=== PATIENT | male | born 1940 | race Caucasian/White ===

== ENCOUNTER → 2016-09-21 | Outpatient (CLI) | payer OTHER, MEDICARE ==
[~2016-09-21] MED LIST: KEFLEX500 MG PO; LEVEMIR100 U/ML SC; LISINOPRIL5 MG PO; LOPRESSOR50 MG PO; NEURONTIN300 MG PO; NORVASC10 MG PO; PLAVIX75 MG PO; ZEITA
[2016-09-21 10:30] LABS: HEMATOCRIT 45.3 % (42.0-52.0); HEMOGLOBIN 14.9 g/dl (14.0-18.0); MEAN CELL VOLUME 87.1 fl (80.0-94.0); MEAN CORPUSCULAR HGB 28.7 pg (27.0-31.0); MEAN CORPUSCULAR HGB CONC 32.9 g/dl (33.0-37.0); MEAN PLATELET VOLUME 12.7 fl (9.6-12.3); PLATELET COUNT AUTOMATED 141 10*3/uL (130-400); RED CELL DISTRI WIDTH 14.3 % (0-14.5)
[2016-09-21 10:48] LABS: ATYPICAL LYMPHS 3 % (0-0); EOSINOPHIL # 0.4 10*3/uL (0-0.4); EOSINOPHILS 1 % (1-4); LYMPHOCYTE # 32.1 10*3/uL (1.3-4.4); MONOCYTE # 0.8 10*3/uL (0.1-1.0); NEUTROPHIL # 5.9 10*3/uL (2.3-7.9); NEUTROPHILS 15 % (47-73); TOTAL CELLS COUNTED 100 #CELLS
[2016-09-21 10:50] LABS: PLATELET SUFFICIENCY NORMAL (NORMAL)
[2016-09-21 10:51] LABS: ALBUMIN 4.1 gm/dl (3.1-4.5); ALKALINE PHOSPHATASE 123 U/L (45-117); BILIRUBIN, TOTAL 0.6 mg/dl (0.2-1.0); BUN 13 mg/dl (7-24); CARBON DIOXIDE 29 mmol/L (21-32); CHLORIDE 104 mmol/L (98-107); EST GLOM FILT AFRICAN AMERICAN > 60 ml/min; GLUCOSE 130 mg/dL (65-99); LDH 191 U/L (87-241); POTASSIUM 4.5 mmol/L (3.5-5.1); SGOT/AST 9 IU/L (3-35); SGPT/ALT 15 U/L (12-78); SODIUM 141 mmol/L (136-145); TOTAL PROTEIN 6.9 gm/dL (6.4-8.2)
[2016-09-21 11:23] LABS: WHITE BLOOD COUNT 39.1 10*3/uL (4.8-10.8)
== END | disposition home or self-care (01) ==
LOC: LAB 09:45
PROVIDERS: Internal Medicine Hematology & Oncology
DX: C91.10 Chronic lymphocytic leukemia of B-cell type not having achieved remission (principal)

== ENCOUNTER → 2017-04-09 | Outpatient (CLI) | payer MEDICARE ==
[2017-04-09 15:20] LABS: HEMATOCRIT 41.8 % (42.0-52.0); HEMOGLOBIN 13.5 g/dl (14.0-18.0); MEAN CELL VOLUME 86.2 fl (80.0-94.0); MEAN CORPUSCULAR HGB 27.8 pg (27.0-31.0); MEAN CORPUSCULAR HGB CONC 32.3 g/dl (33.0-37.0); MEAN PLATELET VOLUME 12.9 fl (9.6-12.3); PLATELET COUNT AUTOMATED 130 10*3/uL (130-400); RED BLOOD COUNT 4.85 10*6/uL (4.50-5.90); RED CELL DISTRI WIDTH 15.2 % (0-14.5); WHITE BLOOD COUNT 29.4 10*3/uL (4.8-10.8)
[2017-04-09 16:16] LABS: BASOPHILS 1 % (0-1); PLATELET SUFFICIENCY NORMAL (NORMAL); TOTAL CELLS COUNTED 100 #CELLS
== END | disposition home or self-care (01) ==
LOC: LAB 14:54
PROVIDERS: Internal Medicine Hematology & Oncology
DX: C91.10 Chronic lymphocytic leukemia of B-cell type not having achieved remission (principal)

== ENCOUNTER 2017-06-24 20:06 | Inpatient (IN) | payer MEDICARE ==
[~2017-06-24] VITALS: Ht 195.5 cm; Wt 86.8 kg
--- NOTE | ~2017-06-24 | CON ---
[place], [place] REPORT OF CONSULTATION NAME: BRENTON RIZVI Joanna UNIT #: [id number] ROOM: 520 DOCTOR: SUSAN HOWARD MD BIRTHDATE: [birth year] DOS: 06/26/2017 HISTORY OF PRESENT ILLNESS: A 77-year-old gentleman who has presented with chief complaint of not feeling well. Initially, the patient is known with chronic lymphocytic leukemia. The patient has been seen by Dr. Mckinley of Oncology already. During the investigation, we found that the patient has lung nodules, multiple liver nodules, lymphadenopathy, and today has been sent for lung biopsy. PAST MEDICAL HISTORY: Associated with hypertension, diabetes mellitus, CLL, COPD, atherosclerosis, vasculature, and hypertension. PAST SURGICAL HISTORY: He has had tonsillectomy, endarterectomy, antral vascular stents as well as he has had a colonoscopy about 2 years ago. SOCIAL HISTORY: Past smoker. History of alcohol ____. MEDICATIONS: Medication list has been reviewed. REVIEW OF SYSTEMS: HEENT: Denies double vision or blurred vision. RESPIRATORY: Admits some shortness of breath. CARDIOVASCULAR: Denies chest pain. DIGESTIVE SYSTEM: No hematemesis. No hematochezia. Bowel movements are in order. PHYSICAL EXAMINATION: GENERAL: Frail patient with some degree of aphasia; otherwise, still alert, not encephalopathic. HEENT: Benign otherwise. NECK: Supple. LUNGS: Decreased air entry. Anteriorly auscultated. HEART: Normal sinus rhythm. No gallop. No murmur. ABDOMEN: Tender in right upper quadrant on the liver capsule. Bowel sounds present. EXTREMITIES: Dry. IMPRESSION AND PLAN: Ruling out metastatic disease of advanced degree multiorgan, biopsies has been pending. The latest studies including CT scan of the head, acute intracranial infarct in the left parietal lobe was noticed. Small vessel disease seen. Blood cultures negative. Lung biopsy is pending. Pathology report, latest H and H 13 and 39 with a white blood cell of 23 and thrombocytopenia. His kidneys are doing well with GFR greater than 60. Magnesium benign. Liver function test abnormal as expected. Hemoglobin A1c 7. Workup in progress. [place], [place] REPORT OF CONSULTATION NAME: BRENTON RIZVI UNIT #: [id number] ROOM: 520 DOCTOR: SUSAN HOWARD MD BIRTHDATE: [birth year] SUSAN HOWARD MD CM:CONSTR:REPORT OF CONSULTATION 1919 06/27/17 0322 interface
--- NOTE | ~2017-06-24 | PR ---
[place], [place] PROGRESS NOTE NAME: BRENTON RIZVI [facility] #: [id number] UNIT #: [id number] ROOM: 520 DOCTOR: GARETT GONZALES MD BIRTHDATE: [birth year] DOS: 06/29/2017 SUBJECTIVE: The patient is doing better. He is alert and oriented. REVIEW OF SYSTEMS HEENT: No trouble swallowing. No double vision. No loss of vision. No pain. ENT AND RESPIRATORY: No wheeze. No change in voice. No cough. No shortness of breath. No coughing up blood. No epistaxis. CARDIOLOGIC: No chest pain. No dizziness. No irregular heartbeat. No leg edema. No palpitations. No shortness of breath. HEMATOLOGIC AND LYMPH: No past transfusion. No fatigue. No loss of appetite. No easy bruising. GASTROENTEROLOGIC: No change in bowel habits. No vomiting blood. No abdominal cramping. No nausea. No vomiting. No diarrhea. No constipation. No blood in stool. MALE REPRODUCTIVE: No testicular pain. No penile discharge. MUSCULOSKELETAL: No back pain. No muscle pain or weakness. No tingling/numbness. UROLOGIC: No pain with urination. No difficulty urinating. No frequent urination. NEUROLOGIC: No burning pain in feet. No trouble with coordination. No loss of consciousness. No headache. No tingling/numbness. No memory loss. PHYSICAL EXAMINATION GENERAL: Pleasant gentleman in no apparent distress. VITAL SIGNS: Stable and afebrile. HEENT: Normocephalic, atraumatic NECK AND THYROID: Supple. No JVD, thyromegaly, or lymphadenopathy. HEART: Normal S1, S2. Regular rate and rhythm. LUNGS: Clear to auscultation and percussion. ABDOMEN: Soft. Nontender, nondistended. Bowel sounds present. EXTREMITIES: Normal ROM. No clubbing. No edema. LABORATORY DATA: White count of 20.3, hemoglobin 12.7, hematocrit 39.0, platelet count 136,000. EGFR is more than 60, sodium 137, potassium 4.1, chloride 101, SGOT 133, SGPT 60, and alkaline phosphatase 378. Pathology of the right lower lung biopsy consistent with non-small cell carcinoma favoring adenocarcinoma. Other tumor markers are pending. CT of the head showed stable appearance infarct in the left parietal lobe, no interval change. CT of the chest showed large mass lesion, right lower lobe, a tiny post-procedure pneumothorax and trace pleural fluid was identified. CT of the abdomen and pelvis showed multiple diffuse hepatic metastases and sclerotic bony metastases and multiple large retroperitoneal and bilateral pelvic node masses. [place], [place] PROGRESS NOTE NAME: BRENTON RIZVI [facility] #: [id number] UNIT #: [id number] ROOM: 520 DOCTOR: GARETT GONZALES MD BIRTHDATE: [birth year] ASSESSMENT: 1. Non-small cell lung cancer with metastatic disease to the liver, multiple, sclerotic bony metastases, and multiple large retroperitoneal and bilateral pelvic aliyah masses. 2. Leukocytosis secondary to chronic lymphocytic leukemia. 3. Thrombocytopenia, which is better. 4. History of cerebrovascular accident, history of infarct. 5. Chronic obstructive pulmonary disease exacerbation. PLAN: I have discussed with the patient about his metastatic cancer. We will wait for the tumor markers to come back. In the meantime, we will also schedule him for a PET scan, once the tumor markers are back, then further intervention. The patient is already on Lovenox. I had a detailed discussion with the patient about it, and he seemed to understand it. Ample time was given to the patient to ask me questions. We will follow up. GARETT GONZALES MD CM:PNTRANS [id number] 11 GARETT GONZALES MD 06/29/172211 interface
--- NOTE | ~2017-06-24 | PR ---
[place], [place] PROGRESS NOTE NAME: BRENTON RIZVI [facility] #: [id number] UNIT #: [id number] ROOM: 520 DOCTOR: CONCHA FALK MD BIRTHDATE: [birth year] DOS: 06/26/2017 CARDIOLOGY PROGRESS NOTE SUBJECTIVE: The patient was seen at his bedside today with family in attendance. He just got back from a radiologically guided biopsy of a lung mass. He tolerated the procedure well and is breathing easily. He has minimal chest pain. PHYSICAL EXAMINATION: VITAL SIGNS: Today his pulse is 74 and regular, blood pressure is 120/50. He is afebrile. NECK: Supple. He has no jugular distention. Carotids are full. LUNGS: Respirations are unlabored. Chest is clear anteriorly and laterally. EXTREMITIES: Showed no edema. IMPRESSION: 1. Abdominal pain. 2. Probable cancer, source unknown, with multiple metastases to lung, liver, retroperitoneum, etc. 3. Mild elevation in troponin. 4. History of vascular disease. PLAN: For now, we will review his echocardiogram when it is available, but I do not have any other plans for cardiac workup until his cancer diagnosis is better established. He does not appear to be having an acute coronary syndrome at this time. I thank the hospitalist group for asking our advice regarding his care. CONCHA FALK MD CM:PNTRANS [phone] CONCHA FALK MD 06/26/17 1547 interface
--- NOTE | ~2017-06-24 | PR ---
[place], [place] PROGRESS NOTE NAME: BRENTON RIZVI [facility] #: [id number] UNIT #: [id number] ROOM: 520 DOCTOR: GARETT GONZALES MD BIRTHDATE: [birth year] DOS: 06/26/2017 SUBJECTIVE: The patient is doing better. He is alert, oriented. His is sitting at the bedside. REVIEW OF SYSTEMS HEENT: No trouble swallowing. No double vision. No loss of vision. No pain. ENT AND RESPIRATORY: No wheeze. No change in voice. No cough. No shortness of breath. No coughing up blood. No epistaxis. CARDIOLOGIC: No chest pain. No dizziness. No irregular heartbeat. No leg edema. No palpitations. No shortness of breath. HEMATOLOGIC AND LYMPH: No past transfusion. No fatigue. No loss of appetite. No easy bruising. GASTROENEROLOGIC: No change in bowel habits. No vomiting blood. No abdominal cramping. No nausea. No vomiting. No diarrhea. No constipation. No blood in stool. MALE REPRODUCTIVE: No testicular pain. No penile discharge. MUSCULOSKELETAL: No back pain. No muscle pain or weakness. No tingling/numbness. UROLOGIC: No pain with urination. No difficulty urinating. No frequent urination. NEUROLOGIC: No burning pain in feet. No trouble with coordination. No loss of consciousness. No headache. No tingling/numbness. No memory loss. PHYSICAL EXAMINATION: GENERAL: Pleasant gentleman in no apparent disorders. VITAL SIGNS: Stable and afebrile. HEENT: Normocephalic, atraumatic NECK AND THYROID: Supple. No JVD, thyromegaly, or lymphadenopathy. HEART: Normal S1, S2. Regular rate and rhythm. LUNGS: Clear to auscultation and percussion. ABDOMEN: Soft. Nontender, nondistended. Bowel sounds present. EXTREMITIES: Normal ROM. No clubbing. No edema. LABORATORY DATA: White count 23.8, hemoglobin 13.0, hematocrit 39.6, platelet count 214,000. Calcium 8.8. EGFR more than 60, sodium 138, potassium 4.0, chloride 100, bicarbonate 27, magnesium of 2.5. ASSESSMENT: 1. A 7.5 cm mass-like opacity in the right lower lung lower lobe. 2. Metastatic disease to the liver, lymph nodes and the bones. 3. Chronic lymphocytic leukemia. 4. Leukocytosis secondary to #3. PLAN: He had a CT-guided biopsy of the lung done today, we will wait for reports to come back. Depending on further intervention, I had discussed the case with the patient as well with the and they seem to understand it. [place], [place] PROGRESS NOTE NAME: BRENTON RIZVI UNIT #: [id number] ROOM: [facility] DOCTOR: GARETT GONZALES MD BIRTHDATE: [birth year] GARETT GONZALES MD CM:LAVERNE 1351 40 GARETT GONZALES MD 06/26/17 2340 interface
--- NOTE | ~2017-06-24 | PR ---
[place], [place] PROGRESS NOTE NAME: BRENTON RIZVI [facility] #: [id number] UNIT #: [id number] ROOM: 520 DOCTOR: GARETT GONZALES MD BIRTHDATE: [birth year] DOS: 06/28/2017 SUBJECTIVE: The patient is doing better. He is alert and oriented. REVIEW OF SYSTEMS: HEENT: No trouble swallowing. No double vision. No loss of vision. No pain. ENT AND RESPIRATORY: No wheeze. No change in voice. No cough. No shortness of breath. No coughing up blood. No epistaxis. CARDIOLOGIC: No chest pain. No dizziness. No irregular heartbeat. No leg edema. No palpitations. No shortness of breath. HEMATOLOGIC AND LYMPH: No past transfusion. No fatigue. No loss of appetite. No easy bruising. GASTROENTEROLOGIC: No change in bowel habits. No vomiting blood. No abdominal cramping. No nausea. No vomiting. No diarrhea. No constipation. No blood in stool. MALE REPRODUCTIVE: No testicular pain. No penile discharge. MUSCULOSKELETAL: No back pain. No muscle pain or weakness. No tingling/numbness. UROLOGIC: No pain with urination. No difficulty urinating. No frequent urination. NEUROLOGIC: No burning pain in feet. No trouble with coordination. No loss of consciousness. No headache. No tingling/numbness. No memory loss. PHYSICAL EXAMINATION: GENERAL: Pleasant gentleman in no apparent distress. VITAL SIGNS: Blood pressure 140/54, respiratory rate 20, pulse 87, and temperature 97.6. HEENT: Normocephalic, atraumatic NECK AND THYROID: Supple. No JVD, thyromegaly, or lymphadenopathy. HEART: Normal S1, S2. Regular rate and rhythm. LUNGS: Clear to auscultation and percussion. ABDOMEN: Soft. Nontender, nondistended. Bowel sounds present. EXTREMITIES: Normal ROM. No clubbing. No edema. LABORATORY DATA: White count of 19.7, hemoglobin 13.2, hematocrit 41.4, and platelet count of 126. ASSESSMENT: 1. Leukocytosis secondary to chronic lymphocytic leukemia. 2. Thrombocytopenia. 3. Metastatic lung cancer. PLAN: The patient will be getting a PET scan as outpatient. I have discussed the findings with the family. We will keep a close watch on him at this time. Discussed. [place], [place] PROGRESS NOTE NAME: BRENTON RIZVI UNIT #: [id number] ROOM: 520 DOCTOR: GARETT GONZALES MD BIRTHDATE: [birth year] GARETT GONZALES MD CM:PNTRANS 56 GARETT GONZALES MD 06/29/171956 interface
--- NOTE | ~2017-06-24 | CON ---
[place], [place] REPORT OF CONSULTATION NAME: BRENTON RIZVI [facility] #: [id number] UNIT #: [id number] ROOM: 520 DOCTOR: GARETT GONZALES MD BIRTHDATE: [birth year] DOS: 06/25/2017 HISTORY OF PRESENT ILLNESS: The patient is a pleasant 77-year-old [place] gentleman who presented to [facility] because of abdominal pain. The pain is worse mostly in the lower areas and comes and goes. He has CT performed at Emergency Department, it showed a mass in his lungs as well as mass in the pelvis and additional metastatic lesion in the liver and bones. Subsequently, he was considered for further evaluation and management. PAST MEDICAL HISTORY: History of chronic lymphocytic leukemia, atherosclerosis, colon polyps, COPD, diverticulosis, type 2 diabetes, hyperlipidemia, hypertension, and hemorrhoids. PAST SURGICAL HISTORY: Carotid endarterectomy, history of intravascular stent placement, history of colonoscopy, and tonsillectomy. SOCIAL HISTORY: No smoking since 1 year. No alcohol abuse or drug abuse. FAMILY HISTORY: Mother had emphysema. Father had coronary artery disease. ALLERGIES: No known allergies. MEDICATIONS: Amlodipine, Lipitor, Plavix, Zetia, Neurontin, Levemir, and Lopressor. REVIEW OF SYSTEMS: CONSTITUTIONAL: No chills. No fatigue. No fever. No loss of appetite. No night sweats. No weakness. No weight loss. HEENT: No trouble swallowing. No loss of smell. No loss of hearing. No double vision. No pain. No discharge. ENT AND RESPIRATORY: No wheeze. No sore throat. No change in voice. No hearing loss. No nose bleed. No cough. No trouble breathing through nose. No shortness of breath. No coughing up blood. No epistaxis. CARDIOVASCULAR: No chest pain. No dizziness. No irregular heartbeat. No leg edema. No pain in legs while walking. No palpitations. No shortness of breath. DERMATOLOGIC: No acne. No hives. No laceration. No mole. No rash. ENDOCRINE: No cold intolerance. No diabetes. No fatigue. No hot flashes. No polydipsia. No polyuria. No urinating frequently. No weight loss. HEMATOLOGIC AND LYMPH: No fatigue. No easy bruising. GASTROENTEROLOGIC: No change in bowel habits. No indigestion. No frequent bloating. No vomiting blood. No abdominal cramping. No nausea. No heartburn. No vomiting. No abdominal pain. No dysphagia. No diarrhea. No constipation. No blood in stool. MALE REPRODUCTIVE: No testicular pain. No difficulty with erection. No diminished sexual drive. No penile discharge. MUSCULOSKELETAL: No back pain. No muscle pain or weakness. No neck pain. No tingling/numbness. No swelling/bruising. No osteoporosis treatment. OPTHALMOLOGIC: No double vision. No diminished vision. No loss of vision. UROLOGIC: No dysuria. No frequent nighttime urination. No pain with [place], [place] REPORT OF CONSULTATION NAME: BRENTON RIZVI UNIT #: [id number] ROOM: [facility] DOCTOR: GARETT GONZALES MD BIRTHDATE: [birth year] urination. No difficulty urinating. No blood in urine. No frequent urination. No urinary incontinence. NEUROLOGIC: No loss of sensation in specific body area. No vertigo. No burning pain in feet. No trouble with balance. No trouble with coordination. No loss of consciousness. No loss of feeling/power. No confusion. No headache. No tingling/numbness. PSYCHOLOGIC: No tinnitus. No headaches. No shortness of breath. No weight decrease. No nausea. No vomiting. No abdominal discomfort. No constipation. No diarrhea. No depression. No anxiety. PHYSICAL EXAMINATION: GENERAL: Pleasant gentleman, in no apparent distress. Complaining of pain in the abdomen. VITAL SIGNS: Stable. Afebrile. HEENT: Oral mucosa appears intact. The external ears are normal in appearance. Nares are patent without lesions, exudates, erythema, or inflammation. Tongue is symmetrical. Uvula is midline. NECK AND THYROID: Neck supple without palpable masses. Trachea is midline. No thyromegaly. No carotid bruit or JVD. BREASTS: Normal. Nipples unremarkable. No drainage. No lumps felt on either side. HEART: Normal S1, S2, without significant murmur, rub, or gallop. LUNGS: Clear to auscultation and percussion with good air entry bilaterally. The patient is breathing easily without the use of accessory muscles. Diaphragmatic excursions are intact. ABDOMEN: Soft, tender in the right quadrants, but no rebound or guarding. LYMPHATIC: No adenopathy noted in the cervical, supraclavicular, axillary, or inguinal regions. NEUROLGIC: Nonfocal. Oriented to person, place, and time. MENTAL STATUS: Appropriate for mood and affect. PERIPHERAL PULSES: No varicosities. Femoral and pedal pulses are palpable. EXTREMITIES: Without cyanosis, clubbing, or edema. No gross anomalies. LABORATORY DATA: Sodium 136, potassium 5.1, chloride 100, bicarbonate 28, EGFR is more than 60, calcium is 9.1. White count of 33.3, hemoglobin of 14.8, hematocrit 45.2, MCV 85.1, and platelet count of 131,000. ASSESSMENT: 1. Right lung mass with metastasis to the liver and the bones. 2. History of chronic lymphocytic leukemia. 3. Abdominal pain. 4. Anemia of neoplastic disorder. PLAN: The patient is scheduled for a biopsy. We will ____ of the lung. We will wait for the biopsy to come back. Depending on the further intervention, I had a detailed discussion with the patient as well as his . I also called her on the phone. Ample time was given to the patient to ask me questions. We will follow as her leukocytosis concern is probably reactive. Thanks for consulting and letting me participate in the care of this interesting [place], [place] REPORT OF CONSULTATION NAME: DMITRIBRENTON Joanna UNIT #: [id number] ROOM: [facility] DOCTOR: GARETT GONZALES MD BIRTHDATE: [birth year] patient. GARETT GONZALES MD CM:CONSTR:REPORT OF CONSULTATION 1347 06/27/17 0228 interface
--- NOTE | ~2017-06-24 | PR ---
[place], [place] PROGRESS NOTE NAME: BRENTON RIZVI UNIT #: [id number] ROOM: 520 DOCTOR: GARETT GONZALES MD BIRTHDATE: [birth year] DOS: 06/25/2017 The patient with a history of right lung mass and mets to the liver as well as history of CLL. CAT scan showing lymphadenopathy. I will review all the records. He will need a CT-guided biopsy of the lung. We will wait for the record from [facility]. Depending upon that, further intervention will be done. Full consult to follow. GARETT GONZALES MD CM:LAVERNE [phone] 32 GARETT GONZALES MD 06/25/173 interface
--- NOTE | ~2017-06-24 | PR ---
[place], [place] PROGRESS NOTE NAME: BRENTON RIZVI [facility] #: [id number] UNIT #: [id number] ROOM: 520 DOCTOR: GARETT GONZALES MD BIRTHDATE: [birth year] DOS: 06/27/2017 SUBJECTIVE: The patient is doing better. He is alert and oriented. He had a lung biopsy done, results are pending. REVIEW OF SYSTEMS HEENT: No trouble swallowing. No double vision. No loss of vision. No pain. ENT AND RESPIRATORY: No wheeze. No change in voice. No cough. No shortness of breath. No coughing up blood. No epistaxis. CARDIOLOGIC: No chest pain. No dizziness. No irregular heartbeat. No leg edema. No palpitations. No shortness of breath. HEMATOLOGIC AND LYMPH: No past transfusion. No fatigue. No loss of appetite. No easy bruising. GASTROENTEROLOGIC: No change in bowel habits. No vomiting blood. No abdominal cramping. No nausea. No vomiting. No diarrhea. No constipation. No blood in stool. MALE REPRODUCTIVE: No testicular pain. No penile discharge. MUSCULOSKELETAL: No back pain. No muscle pain or weakness. No tingling/numbness. UROLOGIC: No pain with urination. No difficulty urinating. No frequent urination. NEUROLOGIC: No burning pain in feet. No trouble with coordination. No loss of consciousness. No headache. No tingling/numbness. No memory loss. PHYSICAL EXAMINATION: GENERAL: Pleasant gentleman, in no apparent distress. VITAL SIGNS: Stable. He is afebrile HEENT: Normocephalic, atraumatic NECK AND THYROID: Supple. No JVD, thyromegaly, or lymphadenopathy. HEART: Normal S1, S2. Regular rate and rhythm. LUNGS: Clear to auscultation and percussion. ABDOMEN: Soft. Nontender, nondistended. Bowel sounds present. EXTREMITIES: Normal ROM. No clubbing. No edema. LABORATORY DATA: White count of 20.0, hemoglobin 12.3, hematocrit 37.4, and platelet count 108,000. Peripheral smear showed lymphocytes of 55. ASSESSMENT: 1. Lung mass with mets to the liver. 2. Leukocytosis secondary to chronic lymphocytic leukemia. 3. Possible chronic lymphocytic leukemia. 4. Thrombocytopenia. PLAN: I have discussed with the family. We will wait for the biopsy reports to come back. In the meantime, get records from [facility]. Depending on the biopsy reports further intervention. I have also discussed the finding with Dr. Armenta. Ample time was given to the patient to ask me questions. We will continue antibiotics for now. [place], [place] PROGRESS NOTE NAME: BRENTON RIZVI UNIT #: [id number] ROOM: [facility] DOCTOR: GARETT GONZALES MD BIRTHDATE: [birth year] GARETT GONZALES MD CM:PNTRANS [id number] 1518 GARETT GONZALES MD 06/27/17 1518 interface
[~2017-06-24 20:06] MED LIST changes: -ZEITA; +ZEITA PO
[2017-06-24 20:20] VITALS: BP 130/45
[2017-06-24 21:13] LABS: HEMATOCRIT 45.2 % (42.0-52.0); HEMOGLOBIN 14.8 g/dl (14.0-18.0); MEAN CELL VOLUME 85.1 fl (80.0-94.0); MEAN CORPUSCULAR HGB 27.9 pg (27.0-31.0); MEAN CORPUSCULAR HGB CONC 32.7 g/dl (33.0-37.0); MEAN PLATELET VOLUME 13.1 fl (9.6-12.3); NUCLEATED RED BLOOD CELL 0.1 % (0.0-0.0); PLATELET COUNT AUTOMATED 131 10*3/uL (130-400); RED BLOOD COUNT 5.31 10*6/uL (4.50-5.90); RED CELL DISTRI WIDTH 14.7 % (0-14.5); WHITE BLOOD COUNT 33.3 10*3/uL (4.8-10.8)
[2017-06-24 21:15] VITALS: BP 142/57
[2017-06-24 21:27] LABS: INTERNATIONAL NORM RATIO 1.1 (2.0-3.5)
[2017-06-24 21:30] LABS: ALBUMIN 3.3 gm/dl (3.1-4.5); ALKALINE PHOSPHATASE 452 U/L (45-117); BUN 16 mg/dl (7-24); CHLORIDE 100 mmol/L (98-107); CREATININE 1.21 mg/dL (0.70-1.30); LIPASE 105 U/L (73-393); POTASSIUM 5.1 mmol/L (3.5-5.1); SGOT/AST 199 IU/L (3-35); SGPT/ALT 74 U/L (12-78); SODIUM 136 mmol/L (136-145); TOTAL PROTEIN 6.9 gm/dL (6.4-8.2)
[2017-06-24 21:32] LABS: TROPONIN I 0.053 ng/ml (<0.045)
[2017-06-24 21:37] LABS: TOTAL CELLS COUNTED 100 #CELLS
[2017-06-24 21:38] LABS: BURR CELLS FEW; PLATELET SUFFICIENCY NORMAL (NORMAL)
[2017-06-24 21:39] LABS: MORPHOLOGY COMMENT SMUDGE CELLS PRESENT
[2017-06-24 22:14] VITALS: BP 131/50
[2017-06-24 23:15] VITALS: BP 127/46
[2017-06-24 23:53] LABS: BILIRUBIN NEGATIVE (NEGATIVE); BLOOD NEGATIVE (NEGATIVE); CLARITY SL CLOUDY (CLEAR); COLOR YELLOW (YELLOW); GLUCOSE NEGATIVE (NEGATIVE); KETONE TRACE (NEGATIVE); LEUKO ESTERASE NEGATIVE (NEGATIVE); NITRITE NEGATIVE (NEGATIVE); PH 5.5 (5.0-9.0); UROBILINOGEN 0.2 E.U./dl (0.2-1.0)
[2017-06-25 00:01] LABS: BACTERIA 1+
[2017-06-25 00:03] LABS: URINE AMPHETAMINES < 1000 (1000ng/ml); URINE BARBITURATES < 200 (200ng/ml); URINE BENZODIAZEPINES < 200 (200ng/ml); URINE CANNABINOIDS (THC) < 50 (50ng/ml); URINE COCAINE < 300 (300ng/ml); URINE METHADONE < 300 (300ng/ml); URINE OPIATES < 300 (300ng/ml)
[2017-06-25 00:07] LABS: URINE PHENCYCLIDINE < 25 (25ng/ml)
[2017-06-25 00:55] VITALS: BP 125/58
[2017-06-25 01:00] VITALS: BP 125/58
[2017-06-25 08:00] VITALS: BP 148/58
[2017-06-25] MEDS ORDERED: LIPITOR40 MG PO (09:18)
[2017-06-25 12:00] VITALS: BP 138/50
[2017-06-25 16:00] VITALS: BP 119/52
[2017-06-25 20:00] VITALS: BP 129/53
[2017-06-26] VITALS (10 sets, daily range): BP systolic 98–140; BP diastolic 47–57
[2017-06-26] MEDS ORDERED: ZETIA10 MG PO ×2 (04:12→04:21)
[2017-06-26 08:13] LABS: HEMATOCRIT 39.6 % (42.0-52.0); MEAN CELL VOLUME 85.3 fl (80.0-94.0); MEAN CORPUSCULAR HGB CONC 32.8 g/dl (33.0-37.0); MEAN PLATELET VOLUME 13.4 fl (9.6-12.3); PLATELET COUNT AUTOMATED 114 10*3/uL (130-400); RED BLOOD COUNT 4.64 10*6/uL (4.50-5.90); RED CELL DISTRI WIDTH 14.8 % (0-14.5); WHITE BLOOD COUNT 23.8 10*3/uL (4.8-10.8)
[2017-06-26 08:26] LABS: CHLORIDE 100 mmol/L (98-107)
[2017-06-26 08:35] LABS: ALBUMIN 2.9 gm/dl (3.1-4.5); ALKALINE PHOSPHATASE 349 U/L (45-117); BUN 17 mg/dl (7-24); CHOLESTEROL 83 mg/dL (<200); CREATININE 1.01 mg/dL (0.70-1.30); HDL CHOLESTEROL 22 mg/dl (40-60); LDL CHOLESTEROL 36 mg/dL (9-159); PHOSPHOROUS 4.3 mg/dL (2.5-4.9); SGOT/AST 133 IU/L (3-35); SGPT/ALT 57 U/L (12-78); TOTAL PROTEIN 5.8 gm/dL (6.4-8.2); TRIGLYCERIDES 126 mg/dl (<150); VLDL CHOLESTEROL 25 mg/dL (6-40)
[2017-06-26 08:50] LABS: INTERNATIONAL NORM RATIO 1.1 (2.0-3.5)
[2017-06-26 08:57] LABS: SODIUM 138 mmol/L (136-145)
[2017-06-26 09:01] LABS: PLATELET SUFFICIENCY LOW (NORMAL); TOTAL CELLS COUNTED 100 #CELLS
[2017-06-26 09:02] LABS: BURR CELLS FEW
[2017-06-26 09:14] LABS: VITAMIN D, 25-HYDROXY 14.5 ng/mL (30-100)
[2017-06-27] VITALS: BP 140/64
[2017-06-27 07:06] LABS: HEMATOCRIT 37.4 % (42.0-52.0); HEMOGLOBIN 12.3 g/dl (14.0-18.0); MEAN CELL VOLUME 84.6 fl (80.0-94.0); MEAN CORPUSCULAR HGB 27.8 pg (27.0-31.0); MEAN CORPUSCULAR HGB CONC 32.9 g/dl (33.0-37.0); PLATELET COUNT AUTOMATED 108 10*3/uL (130-400); RED BLOOD COUNT 4.42 10*6/uL (4.50-5.90); RED CELL DISTRI WIDTH 14.8 % (0-14.5)
[2017-06-27 07:30] LABS: ALBUMIN 2.9 gm/dl (3.1-4.5); BUN 20 mg/dl (7-24); CHLORIDE 101 mmol/L (98-107); POTASSIUM 3.8 mmol/L (3.5-5.1); SODIUM 136 mmol/L (136-145)
[2017-06-27 07:32] LABS: ALKALINE PHOSPHATASE 325 U/L (45-117); CREATININE 1.08 mg/dL (0.70-1.30); SGOT/AST 127 IU/L (3-35); SGPT/ALT 56 U/L (12-78); TOTAL PROTEIN 5.6 gm/dL (6.4-8.2)
[2017-06-27 07:58] LABS: BASOPHILS 1 % (0-1); TOTAL CELLS COUNTED 100 #CELLS
[2017-06-27 07:59] LABS: OVALOCYTES FEW; PLATELET SUFFICIENCY LOW (NORMAL)
[2017-06-27 08:00] VITALS: BP 126/58
[2017-06-27 12:00] VITALS: BP 126/50
[2017-06-27 16:00] VITALS: BP 129/49
[2017-06-27 20:00] VITALS: BP 131/64
[2017-06-28] VITALS: BP 133/61
[2017-06-28 06:49] LABS: HEMATOCRIT 41.4 % (42.0-52.0); HEMOGLOBIN 13.2 g/dl (14.0-18.0); MEAN CELL VOLUME 84.7 fl (80.0-94.0); MEAN CORPUSCULAR HGB CONC 31.9 g/dl (33.0-37.0); MEAN PLATELET VOLUME 12.4 fl (9.6-12.3); PLATELET COUNT AUTOMATED 126 10*3/uL (130-400); RED BLOOD COUNT 4.89 10*6/uL (4.50-5.90); RED CELL DISTRI WIDTH 14.7 % (0-14.5); WHITE BLOOD COUNT 19.7 10*3/uL (4.8-10.8)
[2017-06-28 07:45] LABS: PLATELET SUFFICIENCY LOW (NORMAL); TOTAL CELLS COUNTED 100 #CELLS
[2017-06-28 07:46] LABS: BURR CELLS FEW; OVALOCYTES FEW
[2017-06-28 08:00] VITALS: BP 140/54
[2017-06-28 12:00] VITALS: BP 105/40; BP 105/50
[2017-06-28] MEDS ORDERED: OXYCODONE HCL5 MG PO (12:09)
[2017-06-28] MEDS ORDERED: ASPIRIN ADULT L81 M2 PO (12:09)
[2017-06-28] MEDS ORDERED: LIPITOR40 MG PO (12:09)
[2017-06-28] MEDS ORDERED: OXYCONTIN10 M1 PO (12:09)
[2017-06-28] MEDS ORDERED: LACTULOSE20 GM/30 M PO (12:09)
[2017-06-28] MEDS ORDERED: VITAMIN D50000 UNIT PO (12:09)
[2017-06-28] MEDS ORDERED: MIRALAX POWDER17 G1 PO (12:28)
[2017-06-28] MEDS ORDERED: ELIQUIS5 M1 PO (12:28)
[2017-06-28] MEDS ORDERED: LOVENOX100 MG/1 M PO (14:05)
[2017-06-28 15:56] LABS: HEMATOCRIT 37.7 % (42.0-52.0); HEMOGLOBIN 12.5 g/dl (14.0-18.0); MEAN CELL VOLUME 82.7 fl (80.0-94.0); MEAN CORPUSCULAR HGB 27.4 pg (27.0-31.0); MEAN CORPUSCULAR HGB CONC 33.2 g/dl (33.0-37.0); MEAN PLATELET VOLUME 12.6 fl (9.6-12.3); PLATELET COUNT AUTOMATED 124 10*3/uL (130-400); RED BLOOD COUNT 4.56 10*6/uL (4.50-5.90); RED CELL DISTRI WIDTH 14.7 % (0-14.5); WHITE BLOOD COUNT 21.7 10*3/uL (4.8-10.8)
[2017-06-28 16:00] VITALS: BP 132/57
[2017-06-28 16:10] LABS: ALBUMIN 2.6 gm/dl (3.1-4.5); ALKALINE PHOSPHATASE 380 U/L (45-117); BUN 16 mg/dl (7-24); CHLORIDE 101 mmol/L (98-107); CREATININE 1.06 mg/dL (0.70-1.30); POTASSIUM 4.3 mmol/L (3.5-5.1); SGOT/AST 128 IU/L (3-35); SGPT/ALT 57 U/L (12-78); SODIUM 134 mmol/L (136-145); TOTAL PROTEIN 5.6 gm/dL (6.4-8.2)
[2017-06-28 16:39] LABS: ATYPICAL LYMPHS 1 % (0-0); BASOPHILS 1 % (0-1); PLATELET SUFFICIENCY LOW (NORMAL); TOTAL CELLS COUNTED 100 #CELLS
[2017-06-28 16:40] LABS: OVALOCYTES FEW; POLYCHROMASIA SLIGHT
[2017-06-28 16:41] LABS: BURR CELLS FEW
[2017-06-28 20:00] VITALS: BP 149/60
[2017-06-29] VITALS: BP 117/52
[2017-06-29 07:21] LABS: HEMOGLOBIN 12.7 g/dl (14.0-18.0); MEAN CELL VOLUME 83.5 fl (80.0-94.0); MEAN CORPUSCULAR HGB 27.2 pg (27.0-31.0); MEAN CORPUSCULAR HGB CONC 32.6 g/dl (33.0-37.0); MEAN PLATELET VOLUME 13.2 fl (9.6-12.3); PLATELET COUNT AUTOMATED 136 10*3/uL (130-400); RED BLOOD COUNT 4.67 10*6/uL (4.50-5.90); RED CELL DISTRI WIDTH 15.1 % (0-14.5); WHITE BLOOD COUNT 20.3 10*3/uL (4.8-10.8)
[2017-06-29 07:43] LABS: TOTAL CELLS COUNTED 100 #CELLS
[2017-06-29 07:44] LABS: BURR CELLS MODERATE; PLATELET SUFFICIENCY NORMAL (NORMAL)
[2017-06-29 07:55] LABS: ALBUMIN 2.8 gm/dl (3.1-4.5); ALKALINE PHOSPHATASE 378 U/L (45-117); BUN 14 mg/dl (7-24); CHLORIDE 101 mmol/L (98-107); CREATININE 0.96 mg/dL (0.70-1.30); POTASSIUM 4.1 mmol/L (3.5-5.1); SGOT/AST 133 IU/L (3-35); SGPT/ALT 60 U/L (12-78); SODIUM 137 mmol/L (136-145); TOTAL PROTEIN 5.4 gm/dL (6.4-8.2)
[2017-06-29 08:00] VITALS: BP 140/58
[2017-06-29 10:55] LABS: BILIRUBIN NEGATIVE (NEGATIVE); BLOOD NEGATIVE (NEGATIVE); CLARITY SL CLOUDY (CLEAR); COLOR YELLOW (YELLOW); GLUCOSE NEGATIVE (NEGATIVE); KETONE NEGATIVE (NEGATIVE); LEUKO ESTERASE NEGATIVE (NEGATIVE); NITRITE NEGATIVE (NEGATIVE); PH 5.5 (5.0-9.0); SPECIFIC GRAVITY 1.015 (1.005-1.030)
[2017-06-29 11:07] LABS: BACTERIA 1+; URIC ACID CRYSTALS 1+
[2017-06-29 12:00] VITALS: BP 114/50
[2017-06-29] MEDS ORDERED: Lovenox80 MG/0.8 SC (13:41)
[2017-06-29] MEDS ORDERED: WHEELCHAIR1 EACH MC (13:56)
== END 2017-06-29 16:43 | disposition home health service (06) | DRG 871 ==
LOC: ED 20:06 → EDHOLD 23:39 → 5E 23:39
PROVIDERS: Emergency Medicine Emergency Medical Services; Internal Medicine
PROC: 0BBF3ZX Excision of Right Lower Lung Lobe, Percutaneous Approach, Diagnostic (ICD-10-PCS; principal; 2017-06-26)
DX: A41.9 Sepsis, unspecified organism (principal); I63.9 Cerebral infarction, unspecified; I21.A1 Myocardial infarction type 2; J96.01 Acute respiratory failure with hypoxia; E44.0 Moderate protein-calorie malnutrition; J94.8 Other specified pleural conditions; C78.6 Secondary malignant neoplasm of retroperitoneum and peritoneum; C77.5 Secondary and unspecified malignant neoplasm of intrapelvic lymph nodes; E67.8 Other specified hyperalimentation; C78.7 Secondary malignant neoplasm of liver and intrahepatic bile duct; C91.10 Chronic lymphocytic leukemia of B-cell type not having achieved remission; J44.1 Chronic obstructive pulmonary disease with (acute) exacerbation; J95.811 Postprocedural pneumothorax; C79.51 Secondary malignant neoplasm of bone; C34.31 Malignant neoplasm of lower lobe, right bronchus or lung; E83.41 Hypermagnesemia; D69.6 Thrombocytopenia, unspecified; E11.42 Type 2 diabetes mellitus with diabetic polyneuropathy; D63.0 Anemia in neoplastic disease; E11.65 Type 2 diabetes mellitus with hyperglycemia; R74.0 Nonspecific elevation of levels of transaminase and lactic acid dehydrogenase [LDH]; E80.6 Other disorders of bilirubin metabolism; K57.30 Diverticulosis of large intestine without perforation or abscess without bleeding; R65.20 Severe sepsis without septic shock; Y84.8 Other medical procedures as the cause of abnormal reaction of the patient, or of later complication, without mention of misadventure at the time of the procedure; Y92.238 Other place in hospital as the place of occurrence of the external cause; K59.09 Other constipation; I70.90 Unspecified atherosclerosis; Z68.22 Body mass index [BMI] 22.0-22.9, adult; E55.9 Vitamin D deficiency, unspecified; D72.9 Disorder of white blood cells, unspecified; I95.1 Orthostatic hypotension; R04.0 Epistaxis; I10 Essential (primary) hypertension; E78.5 Hyperlipidemia, unspecified; Z79.4 Long term (current) use of insulin; Z90.49 Acquired absence of other specified parts of digestive tract; Z86.010 Personal history of colon polyps; Z82.5 Family history of asthma and other chronic lower respiratory diseases; Z82.49 Family history of ischemic heart disease and other diseases of the circulatory system; Z87.891 Personal history of nicotine dependence; Z79.899 Other long term (current) drug therapy; Z79.02 Long term (current) use of antithrombotics/antiplatelets

== ENCOUNTER 2017-07-08 13:55 | Inpatient (IN) | payer MEDICARE ==
[~2017-07-08] VITALS: Ht 195.6 cm; Wt 88.5 kg
--- NOTE | ~2017-07-08 | PR ---
[place], [place] PROGRESS NOTE [id number] UNIT #: [id number] ROOM: 505 DOCTOR: GARETT GONZALES MD BIRTHDATE: [birth year] DOS: 07/11/2017 SUBJECTIVE: The patient is doing better. He was transferred to telemetry and then had a nosebleed. He was subsequently transferred back to ICU after he was started on heparin drip. He is feeling better today, lying comfortably on the chair. REVIEW OF SYSTEMS: HEENT: No trouble swallowing. No double vision. No loss of vision. No pain. ENT AND RESPIRATORY: No wheeze. No change in voice. No cough. No shortness of breath. No coughing up blood. No epistaxis. CARDIOLOGIC: No chest pain. No dizziness. No irregular heartbeat. No leg edema. No palpitations. No shortness of breath. HEMATOLOGIC AND LYMPH: No past transfusion. No fatigue. No loss of appetite. No easy bruising. GASTROENTEROLOGIC: No change in bowel habits. No vomiting blood. No abdominal cramping. No nausea. No vomiting. No diarrhea. No constipation. No blood in stool. MALE REPRODUCTIVE: No testicular pain. No penile discharge. MUSCULOSKELETAL: No back pain. No muscle pain or weakness. No tingling/numbness. UROLOGIC: No pain with urination. No difficulty urinating. No frequent urination. NEUROLOGIC: No burning pain in feet. No trouble with coordination. No loss of consciousness. No headache. No tingling/numbness. No memory loss. PHYSICAL EXAMINATION: GENERAL: A pleasant gentleman, in no apparent distress. VITAL SIGNS: Blood pressure 120/43, respirations 21, pulse 74, temperature 97.4. HEENT: Normocephalic, atraumatic. NECK AND THYROID: Supple. No JVD, thyromegaly, or lymphadenopathy. HEART: Normal S1, S2. Regular rate and rhythm. LUNGS: Clear to auscultation and percussion. ABDOMEN: Soft. Nontender, nondistended. Bowel sounds present. EXTREMITIES: Normal ROM. No clubbing. No edema. LABORATORY DATA: Sodium 138, potassium 5.2, chloride 103, bicarbonate 22. White count of 19.7, hemoglobin of 10.9, hematocrit of 33.7, platelet count of 100,000. ASSESSMENT: 1. Metastatic lung cancer. 2, Anemia of neoplastic disorder. 3. Leukocytosis, reactive. 4. Renal failure. 5. Possible sepsis. PLAN: The patient will proceed with antibiotics. His counts are stable. We will keep a close watch on him at this time. If the counts drop, ____. His [place], [place] PROGRESS NOTE NAME: DMITRIBRENTON D UNIT #: [id number] ROOM: [facility] DOCTOR: GARETT GONZALES MD BIRTHDATE: [birth year] neutropenia has resolved. Discussed with the patient in detail. GARETT GONZALES MD CM:PNTRANS [id number] GARETT GONZALES MD 07/11/17 1156 interface
--- NOTE | ~2017-07-08 | PR ---
[place], [place] PROGRESS NOTE NAME: BRENTON RIZVI [facility] #: [id number] UNIT #: [id number] ROOM: [place] [address] DOCTOR: NAFISA MENDES MDDESIREE BIRTHDATE: [birth year] DOS: 07/10/2017 SUBJECTIVE: The patient remains in the Intensive Care Unit at this time, but still noted with general weakness and fatigues at this time; however, it had been worsening. The patient noted intermittent dysphagia as well. The patient denies symptoms of chest pain or any abdominal pain. The pain, which has been noted in the body is currently controlled through pain management. The patient was not reported any symptoms of dizziness or headache. He has not ambulated as well. He has been ordered consultation by the Nephrology services for the assessment of current acute changes assessment and management. He denies any symptoms of edema of the lower extremities today. The edema of the lower extremities noted remains improved. OBJECTIVE: VITAL SIGNS: Normal temperature, respiratory rate 118/73, blood pressure 121/49-104/56. The pulse oxygen saturation of the patient on 4 liters 96% saturation recorded. HEENT: Head was atraumatic. Eyes nonicterus. NECK: Supple. CARDIOVASCULAR: S1, S2 audible. LUNGS: Decreased breath sounds noted in the right side of the patient previously. There were no crackles or wheezing. ABDOMEN: Soft, nontender, bowel sounds are present. EXTREMITIES: The patient was noted without any significant edema. MUSCULOSKELETAL: No deformities. GENITOURINARY: Overall, generalized weakness and fatigue still persisted. LABORATORY DATA: CBC today: WBC count 21.5, hemoglobin 10.8, hematocrit 33.5, platelet count 106,000. BMP for the patient this morning; BUN 74, creatinine 3.67, glucose was normal. CPK was noted as normal. IMPRESSION: 1. The patient who has been currently admitted to the hospital noted with general weakness, fatigue, recent diagnosis of metastatic adenocarcinoma. 2. Suspected postobstructive pneumonia. 3. Acute kidney injury for the patient at this time, etiology continued to be assessed with the patient by the Nephrology service and to be determined. 4. The patient with a history of chronic obstructive pulmonary disease as well. PLAN OF TREATMENT: Continue antibiotics, bronchodilators, oxygen supplementation, Nephrology services follow up. DVT prophylaxis. Avoid excessive amount of fluid to prevent any fluid overload. Antibiotic at this time will be continued the same with de-escalation done as soon as all the culture results available for the patient in the next 24-48 hours. Currently, the patient's initial blood culture were reported no bacterial growth. Other cultures were pending. Usual care, other supportive therapy, plan of management and care. Bedside physical therapy assessment was noted in progress. [place], [place] PROGRESS NOTE NAME: BRENTON RIZVI UNIT #: [id number] ROOM: [place] [address] DOCTOR: DESIREE CABRERA MD BIRTHDATE: [birth year] DESIREE SKELTON MD CM:PNTRANS 1437 [id number] DESIREE MENDES MD 07/11/17 0022 interface
--- NOTE | ~2017-07-08 | CON ---
[place], [place] REPORT OF CONSULTATION NAME: BRENTON RIZVI [facility] #: [id number] UNIT #: [id number] ROOM: [facility] DOCTOR: DESIREE CABRERA MD BIRTHDATE: [birth year] DOS: 07/09/2017 PULMONARY CONSULTATION, EVALUATION, AND MANAGEMENT CONSULTATION REQUESTED BY: Venkata Armenta MD. REASON FOR CONSULTATION: Assess the patient's symptoms of shortness of breath, recent diagnosis of metastatic cancer established as well. HISTORY OF PRESENT ILLNESS: This is a 77-year-old white male who has been recently diagnosed with poorly differentiated adenocarcinoma of the lung with a biopsy, which was done by the interventional radiologist of the patient on his admission in the early portion of 06/2017. The patient came back to the hospital. The patient currently admitted to the hospital. The patient is under care of Dr. Victoria Armenta, as the patient reported symptoms of having increased shortness of breath for the patient that occurring at home with increased edema of lower extremity and difficulty of urination. He has been currently admitted to the hospital. The patient is in Intensive Care Unit for the evaluation of current symptoms. The shortness of breath has been noted progressive with mild exertion for the patient in the last couple of days as per . Shortness of breath has been noted significantly severe on the day of admission to the hospital. The patient has been hospitalized on 07/08/2017 after assessment in the Emergency Room. Shortness of breath has been noted partially decreased for the patient at the present time. The patient denies symptoms of chest pain or hemoptysis. He was noted mostly bed bound with inability to walk after his recent hospitalization when the diagnosis of metastatic lung cancer established. The patient denies symptoms of hemoptysis. He has been noted some symptoms of cough, which were noted nonproductive. The patient was also noted symptoms of wheezing as well. There were no symptoms of chest pain reported. REVIEW OF SYSTEMS: CONSTITUTIONAL: He was noted significant fatigue and tiredness. The patient is mostly bed bound at this time because of that. Inability to ambulate independently. History of previous weight loss. EYES: Denies any burning, redness, or tenderness. EARS, NOSE, AND THROAT SYMPTOMS: Denies sore throat, hoarseness, otalgia, or postnasal drainage. CARDIOVASCULAR: Denies anginal pain, edema, or pain of the lower extremities. The edema of the lower extremity, which has been noted on admission seemed to be resolved at this time in the last 24 hours. GENITOURINARY: He was noted with urinary obstruction, inability to urinate on admission. Denies symptoms of hematuria. MUSCULOSKELETAL: The pain was noted in different joints of the patient and the bones as well as the muscles of the patient at times. CENTRAL NERVOUS SYSTEM: Mostly bed bound status. The patient with generalized weakness and fatigue. Remaining systems were reviewed and they were noted all negative. PAST MEDICAL HISTORY: The patient was known with history of: 1. CLL, which has been diagnosed in the past and currently not treated. [place], [place] REPORT OF CONSULTATION NAME: BRENTON RIZVI UNIT #: [id number] ROOM: [facility] DOCTOR: NAFISA MENDES MD,[facility] BIRTHDATE: [birth year] 2. History of COPD. 3. Diverticulosis. 4. Type 2 diabetes mellitus. 5. Hyperlipidemia. 6. Hemorrhoidectomy. 7. Metastatic adenocarcinoma, diagnosed, arising from the right lower lung. 8. History of type 2 diabetes mellitus. 9. Past CVA for this patient. 10. History of diverticulosis. 11. Colon polyps. 12. History of peripheral vascular disease. PAST SURGICAL HISTORY: 1. Carotid endarterectomy. 2. Peripheral artery intervention. The patient has stent placement. 3. Tonsillectomy. 4. CT-guided needle aspirate biopsy of the right lower lung mass on 06/26/2017. SOCIAL HISTORY: The patient is currently , lives at home. His has been present in the room with the patient. The tobacco use for the patient was noted since teenager, 2 packs of cigarettes per day that was discontinued in 2016. He has worked 30 years in the [employer] as well. MEDICATIONS: The medications of the patient list at this time of admission is noted use of Norvasc, Lipitor, vitamin D, Plavix, enoxaparin, Levemir, lactulose, lisinopril, metoprolol tartrate, OxyContin, and MiraLax. FAMILY HISTORY: Mother from complication of emphysema. Father from complication of coronary artery disease. DRUG ALLERGIES: Noted as no known drug allergies. PHYSICAL EXAMINATION: GENERAL: This is a 77-year-old white male currently noted lying in the bed without any acute distress. Height of 6 feet 5 inches and weight of 195 pounds. VITAL SIGNS: Vital signs of the patient which has been recorded. The patient shows since admission normal temperature, respiratory rate 18-20, heart rate of 66-74, and blood pressure 104/50-129/54. The pulse oxygen saturation recorded as oxygen saturation of 96% on 4 liter nasal cannula. HEENT: Examination shows head was atraumatic. Eyes nonicterus. NECK: Supple. Oral mucosa was noted mildly dry. CARDIOVASCULAR: S1, S2 is audible. LUNGS: The patient noted general reduction of the breath sounds, much more decreased on the right than the left side. ABDOMEN: Soft and nontender. Bowel sounds present. No tenderness. EXTREMITIES: The patient noted without any acute edema, clubbing, or cyanosis at this time. VISIBLE SKIN: No lesions or rashes. CENTRAL NERVOUS SYSTEM: Noted intact, but generalized weakness and fatigue was noted. [place], [place] REPORT OF CONSULTATION NAME: BRENTON RIZVI Joanna UNIT #: [id number] ROOM: [facility] DOCTOR[facility] [birth year] LABORATORY DATA: The PT and INR that was done yesterday on admission was normal. Lactic acid of 1.8. CMP of the patient yesterday, the patient's BUN is 61, creatinine is 2.68, and sodium 135. Albumin of 2.7. Total bilirubin 1.8. AST of 242 and alkaline phosphatase 427. The CMP this morning, BUN 66, creatinine 2.80. Sodium 135, potassium 5.4. AST, ALT, and bilirubin remains abnormal. CBC today: WBC count 24.0, hemoglobin 11.6, hematocrit 35.2, and platelet count was noted at 101,000. The assessment of the previous BUN and creatinine of the patient on last admission, BUN was noted as normal on 06/29/2017 and the creatinine was noted normal at 0.96. DIAGNOSTIC DATA: The review of the radiology data for this patient. The CT scan of the chest that was done on previous admission noted with a large mass lesion, which was noted pleural base in the right lower lobe with addition of mass lesion noted along the right upper lobe posterior subsegment. Some surrounding area of infiltration such as pneumonia can be completely excluded because of patchy infiltration at that time. Very large mass or lymphadenopathy noted for this patient with a mass in the mediastinum area as well. Because lack of the contrast certainly all the finding cannot be clearly defined. The patient has a chest x-ray that was done on this current admission was reviewed and compared to the last study for this patient that was completed during his previous hospitalization, shows significant worsening in the area in the right lower lobe and right middle lobe with possible additional area of atelectasis would be considered as well. IMPRESSION: 1. The patient who has been currently admitted to the hospital was noted with generalized weakness and fatigue with excessive muscular weakness, recently diagnosed with adenocarcinoma of the lung with possible general muscle weakness may be associated with paraneoplastic syndrome. 2. Possible consideration for the postobstructive pneumonia as well. 3. New onset of severe acute kidney injury noted may be related to the possibility of sepsis, intravascular volume depletion, or other reasons. 4. The patient with a history of chronic lymphocytic leukemia for this patient. 5. Leukocytosis may be combination from the postobstructive pneumonia. 6. Thrombocytopenia may be related to underlying malignancy of the patient as well. PLAN OF MANAGEMENT: The patient will be continued on the current antibiotic until the infection is adequately assessed with culture prior to making de-escalation. DVT prophylaxis should be used. The assessment of the patient with acute kidney injury by the stores laborer will be suggested. Avoid any excessive fluid to prevent any fluid overload. Titrate oxygen to maintain saturation oxygen 90% greater. Usual care. Supportive plan of therapy. The difficulty urination previously of the patient to consider any obstructive process. Urogenital retract as well. Bronchodilator will be continued. continued as well. The patient does have a new onset of chronic obstructive pulmonary disease, which has not been diagnosed. At this time does not seem to have an acute exacerbation with a significant centrilobular emphysema changes noted on the CT scan of the chest. The assessment and management for the [place], [place] REPORT OF CONSULTATION NAME: BRENTON RIZVI Joanna UNIT #: [id number] ROOM: [facility] DOCTOR: NAFISA MENDES MD,DESIREE BIRTHDATE: [birth year] metastatic malignancy currently for this patient is done by Dr. Benitez. The patient was supposed to get a PET scan done for further staging, but it has not been performed since the patient is hospitalized. Overall prognosis of the patient remains guarded. Additional treatment changes to be made for the patient based on the progression of the overall illness. Supportive care, other treatment, plan of care, management, and other therapies. Thanks for allowing me to participate in care of this patient. DESIREE SKELTON MD CM:CONSTR:REPORT OF CONSULTATION 1522 07/10/17 0236 interface
--- NOTE | ~2017-07-08 | CON ---
[place], [place] REPORT OF CONSULTATION NAME: BRENTON RIZVI UNIT #: [id number] ROOM: [facility] DOCTOR: JANET YOST,GARETT BIRTHDATE: [birth year] DOS: 07/09/2017 The patient was seen for metastatic lung cancer. Full consult to follow. GARETT GONZALES MD CM:CONSTR:REPORT OF CONSULTATION 1337 07/10/17 0034 interface
--- NOTE | ~2017-07-08 | PR ---
[place], [place] PROGRESS NOTE NAME: [facility]IZVI [id number] UNIT #: [id number] ROOM: 505 DOCTOR: GARETT GONZALES MD BIRTHDATE: [birth year] DOS: 07/13/2017 SUBJECTIVE: He is awake, alert and responsive. Family is at the bedside. His overall condition is terminal. REVIEW OF SYSTEMS HEENT: No trouble swallowing. No double vision. No loss of vision. No pain. ENT AND RESPIRATORY: No wheeze. No change in voice. No cough. No shortness of breath. No coughing up blood. No epistaxis. CARDIOLOGIC: No chest pain. No dizziness. No irregular heartbeat. No leg edema. No palpitations. No shortness of breath. HEMATOLOGIC AND LYMPH: No past transfusion. No fatigue. No loss of appetite. No easy bruising. GASTROENEROLOGIC: No change in bowel habits. No vomiting blood. No abdominal cramping. No nausea. No vomiting. No diarrhea. No constipation. No blood in stool. MALE REPRODUCTIVE: No testicular pain. No penile discharge. MUSCULOSKELETAL: No back pain. No muscle pain or weakness. No tingling/numbness. UROLOGIC: No pain with urination. No difficulty urinating. No frequent urination. NEUROLOGIC: No burning pain in feet. No trouble with coordination. No loss of consciousness. No headache. No tingling/numbness. No memory loss. PHYSICAL EXAMINATION GENERAL: Pleasant gentleman in no apparent distress. VITAL SIGNS: Stable and afebrile. HEENT: Normocephalic, atraumatic NECK AND THYROID: Supple. No JVD, thyromegaly, or lymphadenopathy. HEART: Normal S1, S2. Regular rate and rhythm. LUNGS: Clear to auscultation and percussion. ABDOMEN: Soft. Nontender, nondistended. Bowel sounds present. EXTREMITIES: Normal ROM. No clubbing. No edema. LABORATORY DATA: White count 17.6, hemoglobin 10.8, hematocrit 34.5, platelet count 89,000. ASSESSMENT: 1. Stage IV metastatic lung cancer with widespread metastatic disease including the retroperitoneal lymph nodes, bones and liver. 2. Acute renal failure. 3. Sepsis. 4. Chronic obstructive pulmonary disease exacerbation. 5. Leukocytosis, reactive. 6. Normocytic anemia. 7. Thrombocytopenia. PLAN: I had a detailed discussion with the patient's family yesterday about overall condition and that it is going to be cueva enough for him to go to hospice as his chemotherapy will harm him. She is going to discuss with her [place], [place] PROGRESS NOTE NAME: BRENTON RIZVI UNIT #: [id number] ROOM: [facility] DOCTOR: GARETT GONZALES MD BIRTHDATE: [birth year] family and decide what to do next, but overall his condition is poor and his performance status is poor. Also, I had discussed with the resident about it and gave my opinion. GARETT GONZALES MD CM:PNTRANS 1450 0017 GARETT GONZALES MD 07/14/17 0016 interface
--- NOTE | ~2017-07-08 | PROC NOTE ---
[place], [place] PROCEDURE NOTE NAME: BRENTON RIZVI [facility] #: [id number] UNIT #: [id number] ROOM: 421 DOCTOR: JADON QUEZADA BIRTHDATE: [birth year] DOS: 07/10/2017 LOCATION: [facility]. ROOM: [place] [address]. DOCTOR: Dr. Oliva. RADIOLOGIST: ____. BACKGROUND INFORMATION: The patient is a 77-year-old male who was seen for modified barium swallow. This test was ordered to view the pharyngeal phase of the swallow and determine most appropriate diet consistency. The patient was seen for a bedside swallow evaluation this morning and displayed signs and symptoms of aspiration at that time. MEDICAL HISTORY: Significant for pneumonia, kidney injury, hypertension, IDDM, CVA and lung cancer with mets to the liver and pelvis. He was initially admitted to the Emergency Room due to experiencing shortness of breath at home. This patient currently receives a regular diet and thin liquids. For today's assessment, the patient was alert and able to follow commands. Generalized weakness was displayed. Patient's speech was dysarthric and difficult to understand. Oral peripheral examination revealed left labial asymmetry, reduced lingual and labial strength, range of motion and coordination. Poor volitional cough and inability to volitionally swallow. METHODS AND MATERIALS USED FOR THE EXAM: The patient was positioned in the lateral plane and examination was viewed under fluoroscopy. The patient was presented with a variety of consistencies to assess swallowing skills including applesauce mixed with barium presented in half teaspoon amounts and nectar and thin liquid barium taken in single sip size amount by cup. ORAL PHASE: The patient achieved adequate labial seal around cup and spoon with no anterior loss. Bolus formation and transit were mildly impaired with pureed consistency. Tongue to palate contact was within normal limits with all consistencies. Tongue to posterior pharyngeal wall contact was mild to moderately impaired with pureed consistency. Velar functioning was within normal limits with no nasal regurgitation. PHARYNGEAL PHASE: The pharyngeal swallow occurred within a timely manner. Laryngeal elevation was mildly impaired. Pooling in the vallecula did occur with pureed consistency. The patient was not aware of this residue made no attempt to clear it. When given nectar thick liquid, he was able to clear his pharynx. The patient displayed no difficulties with nectar thick barium. When swallowing thin liquid, transient upper airway penetration occurred due to reduced laryngeal elevation and epiglottic function. No aspiration occurred with any consistency. IMPRESSIONS AND RECOMMENDATIONS: Based upon assessment results, this 77-year-old patient presents with a moderate oral and mild pharyngeal phase [place], [place] PROCEDURE NOTE NAME: BRENTON RIZVI UNIT #: [id number] ROOM: [facility] DOCTOR: JADON QUEZADA BIRTHDATE: [birth year] dysphagia, impaired bolus formation and transit occurred with puree. Pooling in the vallecula occurred due to reduced tongue base range of motion. This did clear with liquid wash. No aspiration occurred with any consistency; however, transient upper airway penetration occurred with thin liquid. Soft solids were not attempted due to patient's difficulty with puree. Recommend the patient receive a pureed diet and nectar thick liquids. Recommend use of safe swallow strategies such as upright positioning for meals, small bites and sips and alternating liquid and solid to ensure clearance of the pharynx. Followup therapy is recommended to improve swallowing abilities through oral and pharyngeal exercises, education and use of safe swallow strategies. Results and recommendations were shared with the patient, his family members and his nurse and they verbalized understanding. Thank you very much for this referral. Should you have any questions regarding this patient, please contact the speech pathologist at [phone]. JADON QUEZADA CM:PROCNOTE:PROCEDURE NOTE [id number] JADON QUEZADA
--- NOTE | ~2017-07-08 | EKG ---
[place], [place] ELECTROCARDIOGRAM REPORT NAME: BRENTON RIZVI UNIT #: [id number] ROOM: [facility] DOCTOR: SUE COLEMAN MD BIRTHDATE: [birth year] DOS: 07/08/2017 TIME: 1424 hours. Normal sinus rhythm at 59 beats per minute. An intraventricular conduction defect with QRS interval of around 130 milliseconds. Low voltage in precordial leads. An abnormal ECG. No previous tracing is available for comparison. SUE COLEMAN MD CM:EKGRPT:ELECTROCARDIOGRAM REPORT 01 51 SUE COLEMAN MD
--- NOTE | ~2017-07-08 | PR ---
[place], [place] PROGRESS NOTE [id number] #: [id number] ROOM: [place] [address] DOCTOR: SHAGGY YEUNG DO BIRTHDATE: [birth year] DOS: 07/11/2017 SUBJECTIVE: The patient is seen sitting in chair at bedside in the ICU, in no acute distress. The patient reports that he feels well, has no new complaints at this time. He reports his respiratory symptoms have continued to improve. OBJECTIVE: VITAL SIGNS: Temperature 97.4, pulse is 74, respirations 21, blood pressure 120/43, pulse ox is 91% on 4 liters nasal cannula. GENERAL APPEARANCE: The patient is awake, alert and oriented, in no acute distress. HEENT: Eyes are clear. Nares are patent. Mucous membranes are moist. NECK: Supple, nontender. CARDIOVASCULAR: Regular rate and rhythm, no murmurs, gallops or rubs. PULMONARY: Clear to auscultation. No wheezes, rales or rhonchi. ABDOMEN: Soft, nontender with positive bowel sounds. EXTREMITIES: Upper and lower extremities are clear of erythema, edema, clubbing and cyanosis. LABORATORY DATA: Hematology: White count 18.8, hemoglobin 10.8, hematocrit 34.1, platelets 97. Chemistries: Sodium 138, potassium 5.2, chloride 103, carbon dioxide 22, BUN is 84, creatinine is 4.5, glucose is 70, calcium 7.7, phosphorus 4.5, magnesium 2.9. Creatinine kinase 124. Albumin 2.3. Blood cultures, urine cultures, and MRSA surveillance remain negative. Renal ultrasound from yesterday shows increased echogenicity of the renal cortices consistent with intrinsic renal disease, no hydronephrosis bilaterally. Heterogeneous liver likely representing multiple and discrete lesions consistent with metastatic disease and the largest lesion being 6 x 4.4 x 4.5 cm in the right lobe. Gallbladder has showed some sludge. Modified barium swallow shows no aspiration. IMPRESSION: 1. Generalized weakness, fatigue, and metastatic adenocarcinoma. 2. Suspected pneumonia. 3. Acute kidney injury with tubular necrosis. 4. Chronic obstructive pulmonary disease. 5. Bleed on anticoagulation. TREATMENT PLAN: The patient's pulmonary status continues to improve, continue with bronchodilators, antibiotics and oxygen supplementation. Nephrology is following for patient's HIRAM. Fluids are being given. The patient was on therapeutic Lovenox upon admission, suspected likely secondary to the stroke that the patient had a couple of weeks ago. The patient was switched to heparin secondary to the renal failure and subsequently developed a nosebleed. Bleeding stopped when the heparin was stopped. The patient has not been restarted on anticoagulation at this time. Discussed with the primary team about the need for chronic anticoagulation for this patient. They will review and make further recommendations for anticoagulation. The patient continues to improve. The patient likely is stable for transfer out of the ICU. We will continue to follow. [place], [place] PROGRESS NOTE NAME: BRENTON RIZVI UNIT #: [id number] ROOM: [place] [address] DOCTOR: SHAGGY YEUNG DO BIRTHDATE: [birth year] SHAGGY YEUNG DO DESIREE SKELTON MD CM:LAVERNE 1045 [id number] SHAGGY YEUNG DO 07/11/17 1553 interface
--- NOTE | ~2017-07-08 | PR ---
[place], [place] PROGRESS NOTE NAME: BRENTON RIZVI UNIT #: [id number] ROOM: 505 DOCTOR: NAFISA MENDES MD,DESIREE BIRTHDATE: [birth year] DOS: 07/12/2017 SUBJECTIVE: The patient was seen and examined on 07/12/2017, was noted comfortable at this time, transferred to medical floor from the Intensive Care Unit. He has not been noting symptoms of chest pain. There were symptoms of sputum expectoration or any abdominal pain. OBJECTIVE: VITAL SIGNS: For the patient which were recorded for the patient showed the temperature remains as normal. The respiratory rate 20, heart rate 78, blood pressure 115/48. Pulse oxygen saturation on 4 liters nasal cannula 94% saturation. HEENT: Examination shows no acute change. NECK: Supple. CARDIOVASCULAR: S1, S2 audible. LUNGS: Noted with decreased breath sounds essentially in the right lung. ABDOMEN: Soft. EXTREMITIES: Without any acute edema. LABORATORY DATA: The patient's renal function panel: BUN 85, creatinine 5.21, glucose of 51. Potassium 5.5. CBC: WBC count 17.6, hemoglobin 10.8, hematocrit 34.5, platelet count were normal. One view chest x-ray that was done this morning, the patient was reviewed. It shows scattered patchy infiltration in the lungs, mainly in the lower lungs. Small pleural fluid was also seen. CBC today: WBC count 17.6. IMPRESSION: 1. The patient who has been currently noted with progressive acute kidney injury for this patient at this time with stable respiratory status, small pleural fluid secondary to that. Patchy infiltration of the lung was also noted. 2. History of recent diagnosis of advanced non-small cell lung cancer. PLAN OF MANAGEMENT: No changes from the pulmonary standpoint. Continue assessment. The patient's medical management of acute kidney injury for the patient as suggested by the Nephrology services. Bronchodilator in the meantime to be continued. Continuation of the other plan of management as well. Usual care. Additional treatment changes will be done for the patient based on the progression of the illness. Pleural fluid was noted small for the patient at this time, would not require any intervention. [place], [place] PROGRESS NOTE NAME: BRENTON RIZVI UNIT #: [id number] ROOM: 505 DOCTOR: DESIREE CABRERA MD BIRTHDATE: [birth year] DESIREE SKELTON MD CM:PNTRANS 57 DESIREE MENDES MD 07/12/171957 interface
--- NOTE | ~2017-07-08 | PR ---
[place], [place] PROGRESS NOTE NAME: BRENTON RIZVI [facility] #: [id number] UNIT #: [id number] ROOM: 421 DOCTOR: GARETT GONZALES MD BIRTHDATE: [birth year] DOS: 07/10/2017 SUBJECTIVE: The patient is doing better. He had a swallowing test done and was started on p.o. diet. REVIEW OF SYSTEMS: HEENT: No trouble swallowing. No double vision. No loss of vision. No pain. ENT AND RESPIRATORY: No wheeze. No change in voice. No cough. No shortness of breath. No coughing up blood. No epistaxis. CARDIOLOGIC: No chest pain. No dizziness. No irregular heartbeat. No leg edema. No palpitations. No shortness of breath. HEMATOLOGIC AND LYMPH: No past transfusion. No fatigue. No loss of appetite. No easy bruising. GASTROENEROLOGIC: No change in bowel habits. No vomiting blood. No abdominal cramping. No nausea. No vomiting. No diarrhea. No constipation. No blood in stool. MALE REPRODUCTIVE: No testicular pain. No penile discharge. MUSCULOSKELETAL: No back pain. No muscle pain or weakness. No tingling/numbness. UROLOGIC: No pain with urination. No difficulty urinating. No frequent urination. NEUROLOGIC: No burning pain in feet. No trouble with coordination. No loss of consciousness. No headache. No tingling/numbness. No memory loss. PHYSICAL EXAMINATION: GENERAL: Pleasant gentleman, in no apparent distress. VITAL SIGNS: Stable, afebrile. HEENT: Normocephalic, atraumatic NECK AND THYROID: Supple. No JVD, thyromegaly, or lymphadenopathy. HEART: Normal S1, S2. Regular rate and rhythm. LUNGS: Clear to auscultation and percussion. ABDOMEN: Soft. Nontender, nondistended. Bowel sounds present. EXTREMITIES: Normal ROM. No clubbing. No edema. LABORATORY DATA: White count of 21.5, hemoglobin of 10.8, hematocrit 33.5, platelet count 106,000. ASSESSMENT: 1. Metastatic lung cancer. 2. Leukocytosis reactive/infection. 3. Anemia of neoplastic disorder. 4. Mild thrombocytopenia. PLAN: We will wait for his overall condition to get better. He will be also scheduled for a PET scan outpatient depending on further intervention discussed. [place], [place] PROGRESS NOTE NAME: BRENTON RIZVI UNIT #: [id number] ROOM: 421 DOCTOR: GARETT GONZALES MD BIRTHDATE: [birth year] GARETT GONZALES MD CM:PNGILSON [phone] GARETT GONZALES MD 07/10/17 2326 interface
--- NOTE | ~2017-07-08 | PR ---
[place], [place] PROGRESS NOTE [id number] #: [id number] ROOM: 505 DOCTOR: NAFISA MENDES MD,DESIREE BIRTHDATE: [birth year] DOS: 07/11/2017 The patient was independently seen and examined in [id number] encounter. History was confirmed. Physical examination was performed. All labs on the patient were reviewed. The assessment and management for the patient's today's note personally completed. Note done by the medical records technician was approved. SUBJECTIVE: The patient has been currently noted comfortable at this time. He was previously getting Lovenox that was discontinued. The patient was started on the heparin as the patient was noted with progressive acute kidney injury. He has noted nasal bleeding yesterday and after transfer initially to the telemetry floor, transferred back to the Intensive Care Unit. This morning, the patient was noted comfortable at this time, sitting on the chair. He denies symptoms of hemoptysis. The patient was noted apparently with general weakness and fatigue, but that remains persistent. OBJECTIVE: VITAL SIGNS: Shows a normal temperature, respiratory rate of 21, heart rate 74, blood pressure 120/43. The pulse oxygen saturation of the patient on 4 liters nasal cannula 99% saturation. HEENT: Examination shows head was atraumatic. Eyes nonicterus. NECK: Supple. CARDIOVASCULAR: S1, S2 audible. LUNGS: Decreased breaths in the right lung. ABDOMEN: Soft, nontender. EXTREMITIES: Without any edema. SKIN: Visible skin, no lesions or rashes. MUSCULOSKELETAL: No deformities. CENTRAL NERVOUS SYSTEM: Generalized weakness and fatigue of the patient was noted. LABORATORY DATA: Today BUN 84, creatinine 4.52, potassium 5.2. CBC, WBC count 18.8, hemoglobin 10.8, hematocrit 34.1, platelet count 97,000. IMPRESSION: 1. Progressive acute kidney injury with postobstructive pneumonia as well. 2. Overall generalized weakness and fatigue. 3. The patient with overall generalized debility still noted at the present time with metastatic adenocarcinoma of the lung. PLAN OF MANAGEMENT: Monitoring culture results for this patient with reduction of the antibiotics coverage. The patient will discontinue the Levaquin and the vancomycin because of lack of any available cultures. The vancomycin will be discontinued. The only antibiotic will be used as IV Zosyn that should get a coverage for the gram-positive, gram-negative organism for postobstructive pneumonia. Continuation of the assessment of the patient and management, which has been provided by the Nephrology services. Note done by the medical records technician was approved as well. [place], [place] PROGRESS NOTE NAME: BRENTON RIZVI UNIT #: [id number] ROOM: [facility] DOCTOR: DESIREE CABRERA MD BIRTHDATE: [birth year] DESIREE SKELTNO MD CM:LAVERNE [phone] DESIREE MENDES MD 07/12/17 0109 interface
--- NOTE | ~2017-07-08 | PR ---
[place], [place] PROGRESS NOTE NAME: BRENTON RIZVI UNIT #: [id number] ROOM: 505 DOCTOR: DESIREE CABRERA MD BIRTHDATE: [birth year] DOS: 07/13/2017 SUBJECTIVE: The patient has been noted comfortable at this time, resting on the bed. He has been still noted pain, which are described in the upper portion of the abdomen. CT scan of the abdomen done yesterday for further assessment of the abdominal pain. He has not been noted any symptoms of acute chest pain. The patient does have some cough without any sputum expectoration. OBJECTIVE: VITAL SIGNS: For the patient which were recorded shows normal temperature, respiratory rate 20, heart rate 76, blood pressure 137/40, 112/46. The pulse oxygen saturation on 4 liters nasal cannula 93-94% saturation maintained at rest. HEENT: Examination shows no acute change. NECK: Supple. CARDIOVASCULAR: S1, S2 is audible. LUNGS: The patient was noted without any wheezing or crackles, decreased breaths sounds are noted at the lower lungs bilaterally. ABDOMEN: Noted with a nonspecific tender upper portion of the abdomen. Bowel sounds present. EXTREMITIES: Without any edema. LABORATORY DATA: BMP today, patient noted with potassium 5.3, CO2 of 20, BUN further elevated at 89, creatinine was also noted significantly increased 6.04. IMPRESSION: The patient has been noted progressive acute kidney injury, most likely will be requiring hemodialysis; however, the patient has been assessed by Nephrology service for the determination. From the pulmonary standpoint, the patient has been doing very well. The patient being treated for the postobstructive pneumonia and receiving intravenous antibiotics. He has been noted metastatic cancer of the lung with mets to the liver were also noted. PLAN OF MANAGEMENT: Current therapy, plan of management pulmonary standpoint. Continue antibiotics, bronchodilators and the plan of care. Acute kidney injury, which is already being addressed by the Nephrology services. From the pulmonary standpoint, continue the oxygen supplementation. The patient maintained saturation 92% or greater. Other palliative care. [place], [place] PROGRESS NOTE NAME: BRENTON RIZVI UNIT #: [id number] ROOM: 505 DOCTOR: DESIREE CABRERA MD BIRTHDATE: [birth year] DESIREE SKELTON MD CM:PNTRANS 00 [phone] DESIREE MENDES MD 07/13/172310 interface
--- NOTE | ~2017-07-08 | PR ---
[place], [place] PROGRESS NOTE [id number] #: [id number] ROOM: 505 DOCTOR: GARETT GONZALES MD BIRTHDATE: [birth year] DOS: 07/12/2017 SUBJECTIVE: The patient is doing better. He is awake, alert and responsive. REVIEW OF SYSTEMS: HEENT: No trouble swallowing. No double vision. No loss of vision. No pain. ENT AND RESPIRATORY: No wheeze. No change in voice. No cough. No shortness of breath. No coughing up blood. No epistaxis. CARDIOLOGIC: No chest pain. No dizziness. No irregular heartbeat. No leg edema. No palpitations. No shortness of breath. HEMATOLOGIC AND LYMPH: No past transfusion. No fatigue. No loss of appetite. No easy bruising. GASTROENTEROLOGIC: No change in bowel habits. No vomiting blood. No abdominal cramping. No nausea. No vomiting. No diarrhea. No constipation. No blood in stool. MALE REPRODUCTIVE: No testicular pain. No penile discharge. MUSCULOSKELETAL: No back pain. No muscle pain or weakness. No tingling/numbness. UROLOGIC: No pain with urination. No difficulty urinating. No frequent urination. NEUROLOGIC: No burning pain in feet. No trouble with coordination. No loss of consciousness. No headache. No tingling/numbness. No memory loss. PHYSICAL EXAMINATION: GENERAL: Pleasant gentleman in no apparent distress. VITAL SIGNS: Blood pressure 92/43, respiratory rate 20, pulse 74, temperature 97.3. HEENT: Normocephalic, atraumatic NECK AND THYROID: Supple. No JVD, thyromegaly, or lymphadenopathy. HEART: Normal S1, S2. Regular rate and rhythm. LUNGS: Clear to auscultation and percussion. ABDOMEN: Soft. Nontender, nondistended. Bowel sounds present. EXTREMITIES: Normal ROM. No clubbing. No edema. LABORATORY DATA: White count of 17.6, hemoglobin 10.8, hematocrit 34.5, platelet count of 89,000. Peripheral smear shows polychromasia blood cells. Chemistries: Glucose of 51, BUN of 85. EGFR is 11. Sodium 144, potassium 5.5, chloride 110, bicarbonate 20. ASSESSMENT: 1. Acute renal failure. 2. Metastatic lung cancer. 3. Leukocytosis, reactive. 4. Anemia of neoplastic disorder. 5. Neutropenia, which is resolved. 6. Chronic lymphocytic leukemia. PLAN: Chemotherapy will be held until overall condition improves. Transfusion on p.r.n. basis. I expect the white count to improve once overall condition improves. Once kidney function improves, the further intervention will be [place], [place] PROGRESS NOTE NAME: BRENTON RIZVI UNIT #: [id number] ROOM: [facility] DOCTOR: GARETT GONZALES MD BIRTHDATE: [birth year] discussed. We will follow. Thanks for consulting and letting me participate in the care of this interesting patient. GARETT GONZALES MD CM:LAVERNE [phone] GARETT GONZALES MD 07/13/170 interface
[~2017-07-08 13:55] MED LIST changes: +ASPIRIN ADULT L81 M2 PO; +ELIQUIS5 M1 PO; +LACTULOSE20 GM/30 M PO; +LIPITOR40 MG PO; +LOVENOX100 MG/1 M PO; +Lovenox80 MG/0.8 SC; +MIRALAX POWDER17 G1 PO; +OXYCODONE HCL5 MG PO; +OXYCONTIN10 M1 PO; +VITAMIN D50000 UNIT PO; +WHEELCHAIR1 EACH MC; +ZETIA10 MG PO
[2017-07-08 14:05] VITALS: BP 95/40
[2017-07-08 14:37] LABS: HEMATOCRIT 37.5 % (42.0-52.0); HEMOGLOBIN 12.4 g/dl (14.0-18.0); MEAN CELL VOLUME 83.5 fl (80.0-94.0); MEAN CORPUSCULAR HGB 27.6 pg (27.0-31.0); MEAN CORPUSCULAR HGB CONC 33.1 g/dl (33.0-37.0); MEAN PLATELET VOLUME 12.4 fl (9.6-12.3); PLATELET COUNT AUTOMATED 111 10*3/uL (130-400); RED BLOOD COUNT 4.49 10*6/uL (4.50-5.90); RED CELL DISTRI WIDTH 16.4 % (0-14.5)
[2017-07-08 14:49] LABS: INTERNATIONAL NORM RATIO 1.1 (2.0-3.5)
[2017-07-08 15:03] LABS: ALBUMIN 2.7 gm/dl (3.1-4.5); CREATININE 2.68 mg/dL (0.70-1.30); TOTAL PROTEIN 5.5 gm/dL (6.4-8.2)
[2017-07-08 15:06] LABS: TROPONIN I 0.096 ng/ml (<0.045)
[2017-07-08 15:14] VITALS: BP 122/70
[2017-07-08 15:34] LABS: ATYPICAL LYMPHS 1 % (0-0); TOTAL CELLS COUNTED 100 #CELLS
[2017-07-08 15:35] LABS: PLATELET SUFFICIENCY NORMAL (NORMAL)
[2017-07-08 15:51] VITALS: BP 109/40
[2017-07-08] MEDS ORDERED: VITAMIN D50000 UNIT PO (18:02)
[2017-07-08 20:00] VITALS: BP 122/47
[2017-07-09] VITALS: BP 129/55
[2017-07-09 04:00] VITALS: BP 107/38
[2017-07-09 05:55] LABS: ALBUMIN 2.4 gm/dl (3.1-4.5); CREATININE 2.8 mg/dL (0.70-1.30); POTASSIUM 5.4 mmol/L (3.5-5.1); TOTAL PROTEIN 5.2 gm/dL (6.4-8.2)
[2017-07-09 06:45] LABS: HEMATOCRIT 35.2 % (42.0-52.0); HEMOGLOBIN 11.6 g/dl (14.0-18.0); MEAN CELL VOLUME 84.2 fl (80.0-94.0); MEAN CORPUSCULAR HGB 27.8 pg (27.0-31.0); MEAN PLATELET VOLUME 12.8 fl (9.6-12.3); PLATELET COUNT AUTOMATED 101 10*3/uL (130-400); RED BLOOD COUNT 4.18 10*6/uL (4.50-5.90); RED CELL DISTRI WIDTH 16.1 % (0-14.5)
[2017-07-09 07:31] LABS: TOTAL CELLS COUNTED 100 #CELLS
[2017-07-09 07:32] LABS: BURR CELLS MANY; PLATELET SUFFICIENCY LOW (NORMAL)
[2017-07-09 08:00] VITALS: BP 129/54
[2017-07-09 12:00] VITALS: BP 104/56
[2017-07-09 16:00] VITALS: BP 109/73
[2017-07-09 20:00] VITALS: BP 119/48
[2017-07-10] VITALS: BP 109/38
[2017-07-10 04:00] VITALS: BP 99/47
[2017-07-10 04:24] LABS: HEMATOCRIT 33.5 % (42.0-52.0); HEMOGLOBIN 10.8 g/dl (14.0-18.0); MEAN CORPUSCULAR HGB 27.4 pg (27.0-31.0); MEAN CORPUSCULAR HGB CONC 32.2 g/dl (33.0-37.0); MEAN PLATELET VOLUME 11.7 fl (9.6-12.3); PLATELET COUNT AUTOMATED 106 10*3/uL (130-400); RED BLOOD COUNT 3.94 10*6/uL (4.50-5.90); RED CELL DISTRI WIDTH 16.4 % (0-14.5); WHITE BLOOD COUNT 21.5 10*3/uL (4.8-10.8)
[2017-07-10 04:45] LABS: TOTAL CELLS COUNTED 100 #CELLS
[2017-07-10 04:46] LABS: BURR CELLS MANY; CREATININE 3.67 mg/dL (0.70-1.30); PLATELET SUFFICIENCY LOW (NORMAL); POTASSIUM 5.1 mmol/L (3.5-5.1)
[2017-07-10 08:00] VITALS: BP 121/49
[2017-07-10 10:30] LABS: ALBUMIN 2.6 gm/dl (3.1-4.5); PHOSPHOROUS 4.8 mg/dL (2.5-4.9)
[2017-07-10 11:05] LABS: BILIRUBIN NEGATIVE (NEGATIVE); BLOOD 3+ (NEGATIVE); CLARITY CLOUDY (CLEAR); COLOR YELLOW (YELLOW); GLUCOSE NEGATIVE (NEGATIVE); KETONE NEGATIVE (NEGATIVE); LEUKO ESTERASE TRACE (NEGATIVE); NITRITE NEGATIVE (NEGATIVE); PH 5.5 (5.0-9.0); UROBILINOGEN 0.2 E.U./dl (0.2-1.0)
[2017-07-10 11:23] LABS: URINE CREATININE RANDOM 99.5 mg/dL
[2017-07-10 11:25] LABS: RBC TNTC rbc/hpf (0-2); URIC ACID CRYSTALS 2+
[2017-07-10 12:00] VITALS: BP 113/39
[2017-07-10 16:00] VITALS: BP 101/41
[2017-07-10 17:09] LABS: ACT PARTIAL THROMBO TIME 39.6 SECONDS (20.8-31.5); INTERNATIONAL NORM RATIO 1.2 (2.0-3.5)
[2017-07-10 20:00] VITALS: BP 128/49
[2017-07-11] VITALS: BP 110/42; BP 137/56
[2017-07-11 00:18] LABS: HEMATOCRIT 33.7 % (42.0-52.0); HEMOGLOBIN 10.9 g/dl (14.0-18.0); MEAN CELL VOLUME 85.8 fl (80.0-94.0); MEAN CORPUSCULAR HGB 27.7 pg (27.0-31.0); MEAN CORPUSCULAR HGB CONC 32.3 g/dl (33.0-37.0); MEAN PLATELET VOLUME 12.3 fl (9.6-12.3); PLATELET COUNT AUTOMATED 100 10*3/uL (130-400); RED BLOOD COUNT 3.93 10*6/uL (4.50-5.90); RED CELL DISTRI WIDTH 16.6 % (0-14.5); WHITE BLOOD COUNT 19.7 10*3/uL (4.8-10.8)
[2017-07-11 00:37] LABS: PLATELET SUFFICIENCY LOW (NORMAL); TOTAL CELLS COUNTED 100 #CELLS
[2017-07-11 00:39] LABS: BURR CELLS MANY
[2017-07-11 04:00] VITALS: BP 130/56
[2017-07-11 04:30] LABS: HEMATOCRIT 34.1 % (42.0-52.0); HEMOGLOBIN 10.8 g/dl (14.0-18.0); MEAN CELL VOLUME 85.7 fl (80.0-94.0); MEAN CORPUSCULAR HGB 27.1 pg (27.0-31.0); MEAN CORPUSCULAR HGB CONC 31.7 g/dl (33.0-37.0); MEAN PLATELET VOLUME 12.3 fl (9.6-12.3); PLATELET COUNT AUTOMATED 97 10*3/uL (130-400); RED BLOOD COUNT 3.98 10*6/uL (4.50-5.90); RED CELL DISTRI WIDTH 16.5 % (0-14.5); WHITE BLOOD COUNT 18.8 10*3/uL (4.8-10.8)
[2017-07-11 04:49] LABS: ALBUMIN 2.3 gm/dl (3.1-4.5); CREATININE 4.52 mg/dL (0.70-1.30); PHOSPHOROUS 4.5 mg/dL (2.5-4.9); POTASSIUM 5.2 mmol/L (3.5-5.1)
[2017-07-11 05:11] LABS: PLATELET SUFFICIENCY LOW (NORMAL); TOTAL CELLS COUNTED 100 #CELLS
[2017-07-11 05:12] LABS: BURR CELLS MANY
[2017-07-11 07:34] VITALS: BP 120/43
[2017-07-11 11:46] VITALS: BP 115/54
[2017-07-11 16:00] VITALS: BP 101/37
[2017-07-11 20:00] VITALS: BP 110/89
[2017-07-12] VITALS: BP 137/56
[2017-07-12 06:26] LABS: ALBUMIN 2.1 gm/dl (3.1-4.5); CREATININE 5.21 mg/dL (0.70-1.30); POTASSIUM 5.5 mmol/L (3.5-5.1)
[2017-07-12 06:29] LABS: PHOSPHOROUS 4.4 mg/dL (2.5-4.9)
[2017-07-12 06:35] LABS: HEMATOCRIT 34.5 % (42.0-52.0); HEMOGLOBIN 10.8 g/dl (14.0-18.0); MEAN CELL VOLUME 86.9 fl (80.0-94.0); MEAN CORPUSCULAR HGB 27.2 pg (27.0-31.0); MEAN CORPUSCULAR HGB CONC 31.3 g/dl (33.0-37.0); MEAN PLATELET VOLUME 12.7 fl (9.6-12.3); PLATELET COUNT AUTOMATED 89 10*3/uL (130-400); RED BLOOD COUNT 3.97 10*6/uL (4.50-5.90); RED CELL DISTRI WIDTH 17.1 % (0-14.5); WHITE BLOOD COUNT 17.6 10*3/uL (4.8-10.8)
[2017-07-12 07:22] LABS: TOTAL CELLS COUNTED 100 #CELLS
[2017-07-12 07:23] LABS: BURR CELLS MANY; PLATELET SUFFICIENCY LOW (NORMAL); POLYCHROMASIA SLIGHT
[2017-07-12 08:46] VITALS: BP 115/48
[2017-07-12 12:35] VITALS: BP 92/43
[2017-07-12 16:00] VITALS: BP 99/47
[2017-07-12 20:00] VITALS: BP 108/44
[2017-07-13] VITALS: BP 112/46
[2017-07-13 07:21] LABS: ALBUMIN 2.1 gm/dl (3.1-4.5); CREATININE 6.04 mg/dL (0.70-1.30); PHOSPHOROUS 5.1 mg/dL (2.5-4.9); POTASSIUM 5.3 mmol/L (3.5-5.1)
[2017-07-13 08:47] VITALS: BP 137/40
[2017-07-13 12:00] VITALS: BP 104/50
[2017-07-13 16:00] VITALS: BP 91/43
== END 2017-07-13 18:32 | disposition hospice, home (50) | DRG 871 ==
LOC: ED 13:55 → EDHOLD 15:48 → 5E 15:48 → ICCU 15:48 → 4E 07-10 18:26 → ICCU 07-10 23:35 → 5E 07-11 17:49
PROVIDERS: Family Medicine; Hospitalist; Internal Medicine; Internal Medicine Nephrology; Physician Assistant
PROC: BD1BYZZ Fluoroscopy of Mouth/Oropharynx using Other Contrast (ICD-10-PCS; principal; 2017-07-10)
DX: A41.9 Sepsis, unspecified organism (principal); J18.1 Lobar pneumonia, unspecified organism; J96.21 Acute and chronic respiratory failure with hypoxia; N17.0 Acute kidney failure with tubular necrosis; E43 Unspecified severe protein-calorie malnutrition; C78.6 Secondary malignant neoplasm of retroperitoneum and peritoneum; C77.9 Secondary and unspecified malignant neoplasm of lymph node, unspecified; C78.7 Secondary malignant neoplasm of liver and intrahepatic bile duct; R13.12 Dysphagia, oropharyngeal phase; C91.10 Chronic lymphocytic leukemia of B-cell type not having achieved remission; J44.0 Chronic obstructive pulmonary disease with (acute) lower respiratory infection; E87.1 Hypo-osmolality and hyponatremia; J44.1 Chronic obstructive pulmonary disease with (acute) exacerbation; C34.90 Malignant neoplasm of unspecified part of unspecified bronchus or lung; C79.51 Secondary malignant neoplasm of bone; D69.6 Thrombocytopenia, unspecified; E11.51 Type 2 diabetes mellitus with diabetic peripheral angiopathy without gangrene; E11.65 Type 2 diabetes mellitus with hyperglycemia; R65.20 Severe sepsis without septic shock; E78.5 Hyperlipidemia, unspecified; I10 Essential (primary) hypertension; K57.90 Diverticulosis of intestine, part unspecified, without perforation or abscess without bleeding; Y95 Nosocomial condition; E87.5 Hyperkalemia; E80.6 Other disorders of bilirubin metabolism; E55.9 Vitamin D deficiency, unspecified; D63.0 Anemia in neoplastic disease; Z51.5 Encounter for palliative care; Z66 Do not resuscitate; K59.00 Constipation, unspecified; R31.9 Hematuria, unspecified; R33.9 Retention of urine, unspecified; Z86.73 Personal history of transient ischemic attack (TIA), and cerebral infarction without residual deficits; Z86.010 Personal history of colon polyps; Z68.22 Body mass index [BMI] 22.0-22.9, adult; Z79.02 Long term (current) use of antithrombotics/antiplatelets; Z79.4 Long term (current) use of insulin; Z79.899 Other long term (current) drug therapy; Z87.891 Personal history of nicotine dependence; Z82.49 Family history of ischemic heart disease and other diseases of the circulatory system; Z83.6 Family history of other diseases of the respiratory system

== ENCOUNTER 2017-07-13 18:37 | Inpatient (IN) | payer OTHER, MEDICARE ==
[~2017-07-13] VITALS: Ht 195.6 cm; Wt 88.5 kg
--- NOTE | ~2017-07-13 | PR ---
[place], [place] PROGRESS NOTE NAME: [id number] UNIT #: [id number] ROOM: 505 DOCTOR: BETO PINO MD BIRTHDATE: [birth year] DOS: 07/14/2017 SUBJECTIVE: Evaristo Rizvi who is admitted on the [address] under care of Dr. Venkata Armenta and he is having very advanced metastatic CA and that presented under hospice care and they gradually going downhill. He does have acute renal failure, sepsis, pneumonia, COPD, emphysema, tachypnea, leukocytosis, lymphocytosis, neutropenia and advanced metastatic CA with stage 4 widespread and due to his overall condition, all the concern doctor had discussed with the family including Dr. Benitez and it has been agreed that the patient wake up, kept comfortable and he has been put on hospice care and at present, patient is lying comfortable in the bed, but sleeping and I am not trying to wake him up. His blood culture is negative. OBJECTIVE: VITAL SIGNS: Blood pressure is 104/63, pulse 107, respirations 18, temperature 97.9. HEART: Tachycardia. LUNGS: He was having bilateral wheezing with some crepitation. ABDOMEN: Some gas palpable in the abdomen with some tenderness. His overall condition is very poor and family knows about it and we are trying to keep him comfortable. BETO PINO MD CM:PNTRANS [phone] BETO PINO MD 07/16/17 0909 interface
[2017-07-13 20:00] VITALS: BP 88/55
[2017-07-14] VITALS: BP 102/40
[2017-07-14 08:00] VITALS: BP 104/61
[2017-07-14 12:00] VITALS: BP 104/63
[2017-07-14 15:20] VITALS: BP 88/66
[2017-07-14 20:00] VITALS: BP 100/48
== END 2017-07-14 22:09 | disposition expired | DRG 871 ==
LOC: 5E 18:37
DX: A41.9 Sepsis, unspecified organism (principal); J18.9 Pneumonia, unspecified organism; N17.9 Acute kidney failure, unspecified; J44.0 Chronic obstructive pulmonary disease with (acute) lower respiratory infection